=== PATIENT | female | born 1995 | race Caucasian/White ===

== ENCOUNTER → 2020-10-09 | Outpatient (CLI) | payer OTHER ==
[~2020-10-09] MED LIST: AMOXICILLIN500 M1 PO; BIRTH CONTROL; NABUMETONE 750750 M1 PO; PREDNISONE 20 M20 M1 PO; PROMETHAZINE-D120 ML PO; ZANAFLEX4 MG PO
== END ==
LOC: LAB 08:48
PROVIDERS: ATTEND Anesthesiology
DX: Z01.812 Encounter for preprocedural laboratory examination (principal); Z20.822 Contact with and (suspected) exposure to COVID-19